=== PATIENT | male | born 1980 ===

== ENCOUNTER 2021-02-03 12:34 | Emergency (ER) | payer SELFPAY ==
[2021-02-03 12:38] VITALS: BP 164/91; PULSE 98; RESP 16; TEMP 36.2; O2SAT 100
--- NOTE | 2021-02-03 12:42 | PC.NURSE ---
pt states he feels much better - walked to his work from ER
== END 2021-02-03 12:42 | disposition left against medical advice (07) ==
LOC: ANHED 12:46
DX: Z53.21 Procedure and treatment not carried out due to patient leaving prior to being seen by health care provider (principal)
CPT/HCPCS: 99199